=== PATIENT | female | born 1945 | race Caucasian/White ===

== ENCOUNTER 2021-02-27 16:32 | Emergency (ER) | payer OTHER ==
[2021-02-27] MEDS ORDERED: Fentanyl 100 MCG/2 ML VIAL ONE ×2 (17:15→18:52)
[2021-02-27 17:49] LABS: #Basophils 0.1 10x3/uL (0.0-0.2); #Eosinphils 0.2 10x3/uL (0.0-0.5); #Monocytes 0.5 10x3/uL (0.0-1.1); #Neutrophils 10.5 10x3/uL (1.5-8.4); %Basophils 0.4 % (0.0-2.0); %Eosinophils 1.6 % (0.0-6.0); %Lymphocytes 8.5 % (18.0-47.0); %Monocytes 3.8 % (0.0-10.0); %Neutrophils 85.3 % (40.0-75.0); Hemoglobin 10.4 g/dL (12.0-15.5); Mean Corpuscular HGB CONC 32.3 g/dL (32.0-36.0); Mean Corpuscular Hemoglobin 30.2 pg (27.0-33.0); Mean Corpuscular Volume 93.6 fl (81.6-98.3); Mean Platelet Volume 8.9 fl (7.4-10.4); Platelet Count 306 10x3/uL (150-450); RBC Distribution Width 14.5 % (11.5-14.5); Red Blood Cell (RBC) Count 3.44 10x6/uL (3.90-5.03); White Blood Cell (WBC) Count 12.3 10x3/uL (3.5-10.5)
[2021-02-27 17:59] LABS: ALT (SGPT) 16 U/L (8-55); AST (SGOT) 32 U/L (5-34); Albumin 3.3 g/dL (3.4-4.8); Alkaline Phosphatase 64 U/L (40-110); Anion Gap 13 mmol/L (10-20); BUN (Urea Nitrogen) 17 mg/dL (9.8-20.1); Bilirubin, Total 0.4 mg/dL (0.2-1.2); Calc. Creatinine Clearance 0 mL/min (70-130); Calcium 8.9 mg/dL (7.8-10.44); Carbon Dioxide 22 mmol/L (23-31); Chloride 109 mmol/L (98-107); Globulin 3.3 g/dL (2.4-3.5); Glucose 141 mg/dL (83-110); Potassium 3.8 mmol/L (3.5-5.1); Protein, Total 6.6 g/dL (5.8-8.1); Sodium 140 mmol/L (136-145)
[2021-02-27] MEDS ORDERED: Lidocaine 1% w/Epinephrine 1:100K 20 ML VIAL ONE (18:17)
[2021-02-27] MEDS ORDERED: Ketorolac Tromethamine 30 MG/ML VIAL ONE (19:38)
[2021-02-27] MEDS ORDERED: HYDROcodone/Acetaminophen 10/325 mg Tablet ONE (19:39)
== END 2021-02-27 20:48 | disposition home or self-care (01) ==
LOC: CSHERS 16:32
DX: S22.20XA Unspecified fracture of sternum, initial encounter for closed fracture (principal); S62.311A Displaced fracture of base of second metacarpal bone, left hand, initial encounter for closed fracture; S02.2XXA Fracture of nasal bones, initial encounter for closed fracture; S42.109A Fracture of unspecified part of scapula, unspecified shoulder, initial encounter for closed fracture; S01.01XA Laceration without foreign body of scalp, initial encounter; S01.111A Laceration without foreign body of right eyelid and periocular area, initial encounter; E03.9 Hypothyroidism, unspecified; E78.5 Hyperlipidemia, unspecified; I10 Essential (primary) hypertension; V89.2XXA Person injured in unspecified motor-vehicle accident, traffic, initial encounter; Z79.899 Other long term (current) drug therapy
CPT/HCPCS: 29125; 70450; 70486; 71260; 72125; 74177; 80053; 83605; 85025; 86850; 86900; 86901; 93005; 96374; 96375; 96376; G0390; J1885; J3010

== ENCOUNTER 2024-04-29 12:36 | Outpatient (CLI) | payer MEDICARE | END 2024-04-29 12:37 | disposition home or self-care (01) | LOC: CSHCP 12:36 | PROVIDERS: ATTEND Internal Medicine Critical Care Medicine | DX: J84.112 Idiopathic pulmonary fibrosis (principal) | CPT/HCPCS: 94060; 94726; 94729; 94760 ==